=== PATIENT | male | born 1960 | race Caucasian/White ===

== ENCOUNTER 2016-07-08 01:52 | Emergency (ER) | payer OTHER ==
[~2016-07-08] VITALS: Ht 193 cm; Wt 92.0 kg
[~2016-07-08 01:52] MED LIST: AMLO5TAB2 PO; ASCO100072 PO; MORP60TA34 PO; OXYC5CAP4 PO; SERT100T5 PO; VITA400C14 PO
[2016-07-08] MEDS ORDERED: HYDROcodone/APAP 5/325 TABLET PO PRN (03:00)
[2016-07-08] MEDS ORDERED: DIAZEPAM 5 MG TABLET PO ONE (03:00)
[2016-07-08] MEDS ORDERED: KETOROLAC 30 MG/1 ML IM ONE (03:00)
[2016-07-08] MEDS ORDERED: DIAZEPAM 5 MG TABLET ONE (03:01)
[2016-07-08] MEDS ORDERED: HYDROcodone/APAP 5/325 TABLET ONE (03:02)
[2016-07-08] MEDS ORDERED: KETOROLAC 30 MG/1 ML ONE (03:02)
[2016-07-08 04:19] VITALS: BP 134/78
== END 2016-07-08 04:23 | disposition home or self-care (01) ==
LOC: ED 04:17
DX: S39.012A Strain of muscle, fascia and tendon of lower back, initial encounter (principal); I10 Essential (primary) hypertension; I25.2 Old myocardial infarction; X58.XXXA Exposure to other specified factors, initial encounter; Y93.89 Activity, other specified; Y99.8 Other external cause status; Y92.89 Other specified places as the place of occurrence of the external cause
CPT/HCPCS: 72110; 72220; 73610; 96372; 99284; J1885

== ENCOUNTER 2017-03-10 09:21 | Inpatient (IN) | payer MEDICARE, OTHER ==
[~2017-03-10] VITALS: Ht 195.6 cm; Wt 88.4 kg
[~2017-03-10 09:21] MED LIST changes: +OXYC5CAP2 PO; -OXYC5CAP4 PO
[2017-03-10] MEDS ORDERED: KETOROLAC 30 MG/1 ML IVPush ONE (09:30)
[2017-03-10] MEDS ORDERED: HYDROmorphone 2 MG/ML, 1ML ONE ×3 (09:42→13:21)
[2017-03-10] MEDS ORDERED: KETOROLAC 30 MG/1 ML ONE (09:43)
[2017-03-10] MEDS: HYDROmorphone 2 MG/ML, 1ML IVPush PRN ×4 (09:47→13:35)
[2017-03-10 10:01] LABS: HEMATOCRIT 44.3 % (39.2-51.8); HEMOGLOBIN 14.9 g/dL (13.7-18.0)
[2017-03-10 10:13] LABS: ASPARTATE AMINO TRANSFERASE 20 U/L (15-37); BLOOD UREA NITROGEN 15 mg/dL (7-18)
[2017-03-10] MEDS ORDERED: GABA300C10 PO (14:01)
[2017-03-10] MEDS ORDERED: LOSA25TA5 PO (14:01)
[2017-03-10] MEDS ORDERED: GADOBUTROL 10 MMOL/10 ML PFS ONE (14:48)
[2017-03-10 15:33] VITALS: BP 177/117
[2017-03-10] MEDS ORDERED: OXYcodone IR 5MG TABLET PO PRN (17:00)
[2017-03-10] MEDS: CEFTRIAXONE PMX 2GM/50ML 50 ML IV SCH (17:27)
[2017-03-10] MEDS ORDERED: LORazepam INTENSOL 2 MG/ML PO PRN (17:30)
[2017-03-10 19:35] VITALS: BP 163/106
[2017-03-10] MEDS: PREGABALIN 25 MG CAPSULE PO SCH (20:11)
[2017-03-10] MEDS: morphine SULFATE 60 MG TABLET.ER PO SCH (20:11)
[2017-03-10 20:13] VITALS: BP 151/99
[2017-03-11 01:07] VITALS: BP 177/99
[2017-03-11 01:10] VITALS: BP 154/92
[2017-03-11] MEDS: morphine SULFATE 60 MG TABLET.ER PO SCH ×2 (09:00→20:10)
[2017-03-11] MEDS: AMLODIPINE 5 MG TABLET PO SCH (09:08)
[2017-03-11] MEDS: PREGABALIN 25 MG CAPSULE PO SCH ×3 (09:08→20:10)
[2017-03-11 09:22] VITALS: BP 147/90
[2017-03-11] MEDS: NICOTINE 21 MG/24 HR PATCH.TD24 TD ONE (12:30)
[2017-03-11] MEDS ORDERED: VANCOMYCIN PER PHARMACY MC PRN (12:30)
[2017-03-11] MEDS: KETOROLAC 30 MG/1 ML IVPush SCH ×2 (12:30→20:11)
[2017-03-11] MEDS: OXYcodone IR 5MG TABLET PO PRN ×2 (12:57→17:19)
[2017-03-11] MEDS ORDERED: PHARMACOKINETIC MONITORING MC PRN (13:30)
[2017-03-11] MEDS ORDERED: PHARMACOKINETIC CONSULTATION MC ONE (13:30)
[2017-03-11 13:34] VITALS: BP 131/85
[2017-03-11] MEDS: VANCOMYCIN 1,500 MG in SODIUM CHLORIDE 0.9% 250 ML IV SCH (17:20)
[2017-03-11 19:30] VITALS: BP 128/75
[2017-03-11] MEDS: CEFTRIAXONE PMX 2GM/50ML 50 ML IV SCH ×2 (20:07→20:50)
[2017-03-12 01:26] VITALS: BP 138/94
[2017-03-12] MEDS: VANCOMYCIN 1,500 MG in SODIUM CHLORIDE 0.9% 250 ML IV SCH ×2 (01:49→13:59)
[2017-03-12 06:38] LABS: HEMOGLOBIN 12.8 g/dL (13.7-18.0); WHITE BLOOD COUNT 5.6 x10^3/uL (3.4-10)
[2017-03-12 06:48] LABS: BLOOD UREA NITROGEN 23 mg/dL (7-18)
[2017-03-12 07:54] VITALS: BP 170/100
[2017-03-12] MEDS: AMLODIPINE 5 MG TABLET PO SCH (08:42)
[2017-03-12] MEDS: PREGABALIN 25 MG CAPSULE PO SCH ×3 (08:42→20:16)
[2017-03-12] MEDS: morphine SULFATE 60 MG TABLET.ER PO SCH ×2 (08:43→20:15)
[2017-03-12 12:54] LABS: ANA SCREEN NEGATIVE (Negative)
[2017-03-12 12:58] LABS: RHEUMATOID FACTOR SCREEN NEGATIVE (NEGATIVE)
[2017-03-12 12:59] VITALS: BP 163/98
[2017-03-12] MEDS: OXYcodone IR 5MG TABLET PO PRN (13:59)
[2017-03-12 20:11] VITALS: BP 152/83
[2017-03-12] MEDS ORDERED: FENTANYL PF 100 MCG/2ML ONE ×2 (20:28→21:41)
[2017-03-12] MEDS ORDERED: MIDAZOLAM 1 MG/ML, 2ML ONE (20:28)
[2017-03-12] MEDS ORDERED: PROPOFOL 10 MG/ML, 20ML ONE (20:39)
[2017-03-12] MEDS ORDERED: CEFAZOLIN 1,000 MG ONE (20:39)
[2017-03-12] MEDS ORDERED: ROCURONIUM 10 MG/ML,10ML ONE (20:39)
[2017-03-12] MEDS ORDERED: SUCCINYLCHOLINE 20 MG/ML, 10ML ONE (20:39)
[2017-03-12] MEDS ORDERED: ONDANSETRON 2MG/ML, 2ML ONE (20:39)
[2017-03-12] MEDS ORDERED: hydrALAzine 20 MG/ML, 1ML IV PRN (21:00)
[2017-03-12] MEDS ORDERED: ACETAMINOPHEN 325 MG TABLET PO PRN (21:00)
[2017-03-12] MEDS ORDERED: METOCLOPRAMIDE 5 MG/ML, 2ML IV PRN (21:00)
[2017-03-12] MEDS ORDERED: LABETALOL 5MG/ML, 20ML IV PRN (21:00)
[2017-03-12] MEDS ORDERED: HYDROmorphone 1 MG/ML, 1ML IV PRN (21:00)
[2017-03-12] MEDS ORDERED: FENTANYL PF 100 MCG/2ML IV PRN (21:00)
[2017-03-12] MEDS ORDERED: ONDANSETRON 2MG/ML, 2ML IVPush PRN (21:00)
[2017-03-12] MEDS ORDERED: OXYcodone 5 MG/5 ML ORAL.SOL UDC PO PRN (21:00)
[2017-03-12] MEDS ORDERED: BUPIVACAINE/PF-EPI 0.5% 1:200K INFIL ONE (21:30)
[2017-03-12] MEDS ORDERED: OXYcodone 5 MG/5 ML ORAL.SOL UDC ONE (21:41)
[2017-03-12] MEDS: CEFTRIAXONE PMX 2GM/50ML 50 ML IV SCH (22:42)
[2017-03-13 00:31] VITALS: BP 123/74
[2017-03-13] MEDS: VANCOMYCIN 1,500 MG in SODIUM CHLORIDE 0.9% 250 ML IV SCH ×3 (02:21→17:00)
[2017-03-13] MEDS: ACETAMINOPHEN 325 MG TABLET PO PRN ×2 (02:24→22:54)
[2017-03-13] MEDS: OXYcodone IR 5MG TABLET PO PRN ×5 (05:25→22:54)
[2017-03-13 06:53] VITALS: BP 118/66
[2017-03-13] MEDS: PREGABALIN 25 MG CAPSULE PO SCH ×3 (08:07→19:47)
[2017-03-13] MEDS: AMLODIPINE 5 MG TABLET PO SCH (08:07)
[2017-03-13] MEDS: morphine SULFATE 60 MG TABLET.ER PO SCH ×2 (08:07→19:47)
[2017-03-13 12:25] VITALS: BP 122/80
[2017-03-13] MEDS: HEPARIN 5,000 UNITS/ML, 1ML SQ SCH (19:46)
[2017-03-13] MEDS: CEFTRIAXONE PMX 2GM/50ML 50 ML IV SCH (19:47)
[2017-03-13 20:33] VITALS: BP 152/86
[2017-03-14 01:08] VITALS: BP 155/94
[2017-03-14] MEDS: OXYcodone IR 5MG TABLET PO PRN ×3 (02:54→16:17)
[2017-03-14] MEDS: ACETAMINOPHEN 325 MG TABLET PO PRN (02:54)
[2017-03-14] MEDS: VANCOMYCIN 1,500 MG in SODIUM CHLORIDE 0.9% 250 ML IV SCH ×2 (04:52→18:14)
[2017-03-14] MEDS: HEPARIN 5,000 UNITS/ML, 1ML SQ SCH ×3 (05:04→20:20)
[2017-03-14 07:11] VITALS: BP 150/79
[2017-03-14] MEDS: morphine SULFATE 60 MG TABLET.ER PO SCH ×2 (08:35→20:18)
[2017-03-14] MEDS: AMLODIPINE 5 MG TABLET PO SCH (08:42)
[2017-03-14] MEDS: PREGABALIN 25 MG CAPSULE PO SCH ×3 (08:42→20:18)
[2017-03-14 14:50] VITALS: BP 169/99
[2017-03-14] MEDS: CEFTRIAXONE PMX 2GM/50ML 50 ML IV SCH (20:19)
[2017-03-14] MEDS: DOCUSATE 100 MG CAPSULE PO SCH (20:56)
[2017-03-14] MEDS ORDERED: MAGNESIUM HYDROXIDE 8%, 30ML UDC PO PRN (21:00)
[2017-03-14 21:19] VITALS: BP 150/91
[2017-03-15 03:15] VITALS: BP 151/92
[2017-03-15] MEDS: ACETAMINOPHEN 325 MG TABLET PO PRN ×2 (03:18→09:11)
[2017-03-15] MEDS: OXYcodone IR 5MG TABLET PO PRN ×4 (03:18→22:16)
[2017-03-15] MEDS: HEPARIN 5,000 UNITS/ML, 1ML SQ SCH ×3 (04:34→21:08)
[2017-03-15 05:22] LABS: BLOOD UREA NITROGEN 12 mg/dL (7-18)
[2017-03-15] MEDS: VANCOMYCIN 1,500 MG in SODIUM CHLORIDE 0.9% 250 ML IV SCH (05:40)
[2017-03-15 08:00] VITALS: BP 152/88
[2017-03-15] MEDS: DOCUSATE 100 MG CAPSULE PO SCH ×2 (09:00→21:06)
[2017-03-15] MEDS: AMLODIPINE 5 MG TABLET PO SCH (09:10)
[2017-03-15] MEDS: PREGABALIN 25 MG CAPSULE PO SCH ×3 (09:11→21:06)
[2017-03-15] MEDS: morphine SULFATE 60 MG TABLET.ER PO SCH ×2 (10:51→21:00)
[2017-03-15 14:00] VITALS: BP 137/88
[2017-03-15 19:56] VITALS: BP 150/91
[2017-03-16] MEDS: OXYcodone IR 5MG TABLET PO PRN ×2 (02:44→07:53)
[2017-03-16 03:13] VITALS: BP 160/98
[2017-03-16] MEDS: HEPARIN 5,000 UNITS/ML, 1ML SQ SCH ×2 (05:00→13:00)
[2017-03-16 05:12] LABS: HEMATOCRIT 37.8 % (39.2-51.8); HEMOGLOBIN 12.7 g/dL (13.7-18.0); WHITE BLOOD COUNT 5.6 x10^3/uL (3.4-10)
[2017-03-16 05:17] LABS: BLOOD UREA NITROGEN 15 mg/dL (7-18)
[2017-03-16 07:35] VITALS: BP 155/86
[2017-03-16] MEDS: AMLODIPINE 5 MG TABLET PO SCH (07:52)
[2017-03-16] MEDS: DOCUSATE 100 MG CAPSULE PO SCH (07:52)
[2017-03-16] MEDS: PREGABALIN 25 MG CAPSULE PO SCH (07:53)
[2017-03-16] MEDS: morphine SULFATE 60 MG TABLET.ER PO SCH (07:53)
[2017-03-16 13:54] VITALS: BP 150/99
[2017-03-16] MEDS ORDERED: POTASSIUM CHLORIDE 20 MEQ TAB.ER.PRT PO STA (16:30)
[2017-03-16] MEDS ORDERED: IBUP-1222 PO (16:32)
[2017-03-16] MEDS ORDERED: FAMO20TA7 PO (16:32)
== END 2017-03-16 17:08 | disposition home or self-care (01) | DRG 493 ==
LOC: ED 13:54 → EDIP 14:06 → 3NE 15:32
PROVIDERS: ADMIT Family Medicine; ATTEND Family Medicine
PROC: 0S9G3ZZ Drainage of Left Ankle Joint, Percutaneous Approach (ICD-10-PCS; 2017-03-12)
PROC: 0SBG0ZZ Excision of Left Ankle Joint, Open Approach (ICD-10-PCS; principal; 2017-03-12 17:30)
DX: M00.9 Pyogenic arthritis, unspecified (principal); L03.116 Cellulitis of left lower limb; G62.9 Polyneuropathy, unspecified; M11.272 Other chondrocalcinosis, left ankle and foot; F43.10 Post-traumatic stress disorder, unspecified; I10 Essential (primary) hypertension; M06.4 Inflammatory polyarthropathy; I25.2 Old myocardial infarction; M19.072 Primary osteoarthritis, left ankle and foot; M19.071 Primary osteoarthritis, right ankle and foot; M11.271 Other chondrocalcinosis, right ankle and foot; Z59.0 Homelessness; Z79.2 Long term (current) use of antibiotics; Z82.49 Family history of ischemic heart disease and other diseases of the circulatory system
CPT/HCPCS: 36415; 72110; 80048; 80053; 80202; 82565; 83036; 83735; 84520; 84550; 85025; 85651; 86038; 86140; 86430; 86592; 87070; 87075; 87205; 89060; 96374; 96375; A9585; J0690; J0696; J1170; J1644; J1885; J2250; J2405; J2704; J3010; J3370; J0330; J7050

== ENCOUNTER 2017-03-17 01:11 | Emergency (ER) | payer MEDICARE, OTHER ==
[~2017-03-17] VITALS: Ht 193 cm; Wt 90.4 kg
[~2017-03-17 01:11] MED LIST changes: +FAMO20TA7 PO; +GABA300C10 PO; +IBUP-1222 PO; +LOSA25TA5 PO
[2017-03-17 02:30] LABS: HEMATOCRIT 38.5 % (39.2-51.8); HEMOGLOBIN 12.9 g/dL (13.7-18.0); WHITE BLOOD COUNT 6.9 x10^3/uL (3.4-10)
[2017-03-17 02:36] LABS: BLOOD UREA NITROGEN 17 mg/dL (7-18)
[2017-03-17 02:41] LABS: ASPARTATE AMINO TRANSFERASE 14 U/L (15-37)
[2017-03-17] MEDS ORDERED: KETOROLAC 30 MG/1 ML IM ONE (05:00)
[2017-03-17] MEDS ORDERED: KETOROLAC 30 MG/1 ML ONE (05:03)
[2017-03-17 05:30] VITALS: BP 145/97
[2017-03-17] MEDS ORDERED: CEFTRIAXONE 1,000 MG IM ONE (05:30)
[2017-03-17] MEDS ORDERED: DEXAMETHASONE 4 MG TABLET PO ONE (05:30)
[2017-03-17] MEDS ORDERED: DEXAMETHASONE 4 MG TABLET ONE (05:37)
[2017-03-17] MEDS ORDERED: CEFTRIAXONE 1,000 MG ONE (05:37)
== END 2017-03-17 06:21 | disposition home or self-care (01) ==
LOC: ED 01:49
DX: L03.116 Cellulitis of left lower limb (principal); M96.89 Other intraoperative and postprocedural complications and disorders of the musculoskeletal system; I10 Essential (primary) hypertension; Z98.890 Other specified postprocedural states; M19.072 Primary osteoarthritis, left ankle and foot; I25.2 Old myocardial infarction
CPT/HCPCS: 36415; 73610; 80053; 85025; 93971; 96372; 99285; J0696; J1885

== ENCOUNTER 2017-04-18 04:29 | Emergency (ER) | payer OTHER ==
[~2017-04-18] VITALS: Ht 193 cm; Wt 94.0 kg
[2017-04-18 06:07] LABS: MEAN CORPUSCULAR HEMOGLOBIN 30.1 pg (27.5-34.5); MEAN CORPUSCULAR HGB CONC 33.5 g/dL (33.2-36.2); MEAN CORPUSCULAR VOLUME 89.7 fL (81-97); MEAN PLATELET VOLUME 8.3 fL (7.4-10.4); PLATELET COUNT 205 x10^3/uL (130-400); RED BLOOD COUNT 4.32 x10^6/uL (4.38-5.82)
[2017-04-18 06:08] LABS: ALBUMIN 3.3 g/dL (3.4-5.0); ANION GAP 7 mmol/L (5-15); CALCIUM 7.9 mg/dL (8.5-10.1); CHLORIDE 108 mmol/L (98-107)
[2017-04-18 06:11] LABS: ALANINE AMINOTRANSFERASE 28 U/L (12-78); ALKALINE PHOSPHATASE 136 U/L (45-117); BILIRUBIN,TOTAL 0.4 mg/dL (0.2-1.0); CREATININE 0.75 mg/dL (0.7-1.3); TOTAL PROTEIN 6.4 g/dL (6.4-8.2)
[2017-04-18 06:24] LABS: INTERNATIONAL NORMALIZED RATIO 0.96 (0.93-1.1)
[2017-04-18 06:27] LABS: BASOPHILS # (AUTO) 0.02 x10^3/uL (0-0.1); BASOPHILS % (AUTO) 1 % (0-1); EOSINOPHILS # (AUTO) 0.09 x10^3/uL (0-0.4); EOSINOPHILS % (AUTO) 3 % (1-7); LYMPHOCYTES # (AUTO) 0.72 x10^3/uL (1-3.4); LYMPHOCYTES % (AUTO) 21 % (22-44); MD SCAN; MONOCYTES # (AUTO) 0.34 x10^3/uL (0.2-0.8); MONOCYTES % (AUTO) 10 % (2-9); NEUTROPHILS # (AUTO) 2.24 x10^3/uL (1.8-6.8); NEUTROPHILS % (AUTO) 66 % (42-75)
[2017-04-18] MEDS ORDERED: ENOXAPARIN 80 MG/0.8 ML SQ SCH (07:30)
[2017-04-18] MEDS ORDERED: ENOXAPARIN 80 MG/0.8 ML ONE (07:41)
[2017-04-18 08:00] VITALS: BP 183/112
== END 2017-04-18 09:08 | disposition home or self-care (01) ==
LOC: ED 05:52
DX: I82.4Z2 Acute embolism and thrombosis of unspecified deep veins of left distal lower extremity (principal); I10 Essential (primary) hypertension; F17.200 Nicotine dependence, unspecified, uncomplicated
CPT/HCPCS: 36415; 80053; 85025; 85610; 85730; 93971; 96372; 99285; J1650

== ENCOUNTER 2017-05-12 21:12 | Emergency (ER) | payer OTHER ==
[~2017-05-12] VITALS: Ht 188 cm; Wt 90.4 kg
[2017-05-13 00:08] VITALS: BP 178/110
== END 2017-05-13 01:00 | disposition home or self-care (01) ==
LOC: ED 23:03
DX: M25.572 Pain in left ankle and joints of left foot (principal); R60.0 Localized edema; I10 Essential (primary) hypertension; R53.1 Weakness
CPT/HCPCS: 99284